=== PATIENT | female | born 1980 | race Caucasian/White ===

== ENCOUNTER 2017-10-23 11:12 | Emergency (ER) | payer OTHER ==
[2017-10-23 11:18] VITALS: BP 161/105; TEMP 96.9; BMI 28.8
--- NOTE | 2017-10-23 11:44 | ED.PDOC ---
General ED Provider: Dr. VALE TARANGO Chief Complaint: Headache Stated Complaint: CC: Headache. HPI: PATIENT STATES SHE HAD AND ONSET OF HER SYMPTOMS THIS MORNING. STATES THAT SHE HAS A HISTORY OF MIGRAINES. STATES SHE TOOK AN EXCEDRIN MIGRAINE, THEN STARTED VOMITED TEN MINUTES LATER. DENIES LOC. PATIENT REPORTS THAT SHE IS DIZZY Mode of Arrival: Walk-In Information Source: Patient Sepsis Protocol: For patient's 13 years and over: Temp is 96.8 and below OR 101 and greater Pulse >90 BPM Resp >20/minute Acutely Altered Mental Status Are patient's symptoms suggestive of a new infection, such as: -Pneumonia -Skin, Soft Tissue -Endocarditis -UTI -Bone, Joint Infection -Implantable Device -Acute Abdominal Infection -Wound Infection -Meningitis -Blood Stream Catheter Infection -Unknown Past Medical History - Past Medical History Last Menstrual Period: N/A - Social History Smoking Status: Never smoker Hx Substance Use: No Alcohol Screening: Occasionally - Immunizations Tetanus Shot up to Date: No Course - Course Hematology/Chemistry: 10/23/17 12:05 10/23/17 12:05 Orders, Labs, Meds: Lab Review 10/23/17 10/23/17 12:05 12:05 WBC 8.73 RBC 4.67 Hgb 13.6 Hct 39.1 MCV 83.7 MCH 29.1 MCHC 34.8 RDW Coeff of Osbaldo 12.3 Plt Count 161 Immature Gran % (Auto) 0.3 Neut % (Auto) 75.3 Lymph % (Auto) 20.2 [place] % (Auto) 3.2 Eos % (Auto) 0.5 Baso % (Auto) 0.5 Immature Gran # (Auto) 0.0 Neut # (Auto) 6.6 Lymph # (Auto) 1.8 [place] # (Auto) 0.3 L Eos # (Auto) 0.0 Baso # (Auto) 0.0 Sodium 141 Potassium 4.4 Chloride 104 Carbon Dioxide 22 Anion Gap 19.4 BUN 13 Creatinine 0.95 Estimated GFR (MDRD) 67.00 BUN/Creatinine Ratio 13.68 Glucose 97 Calcium 10.1 Total Bilirubin 0.8 AST 21 ALT 22 Alkaline Phosphatase 83 Total Protein 8.2 Albumin 4.2 Globulin 4.0 Albumin/Globulin Ratio 1.05 Orders Category Date Time Status IV [ED IV/MEDIPORT/POWERPORT] .ONCE EMERGENCY 10/23/17 13:21 Active CBC W/ AUTO DIFF Stat LAB 10/23/17 12:05 Completed CMP [COMPREHENSIVE METABOLIC PANEL] Stat LAB 10/23/17 12:05 Completed UA [URINALYSIS C & S IF INDICATED] Stat LAB 10/23/17 13:32 Uncollected URINE DRUG SCREEN (RAPID FOR ED) [DRUG SCREEN, URINE, LAB 10/23/17 13:32 Uncollected RAPID] Stat 0.9 % Sodium Chloride [Saline Flush] MEDS 10/23/17 13:21 Active 1 syr IVF PRN PRN Ketorolac Tromethamine [Toradol] MEDS 10/23/17 11:48 Discontinued 30 mg IM ONCE STA Ondansetron [Zofran Odt] MEDS 10/23/17 11:48 Discontinued 4 mg PO ONCE STA Promethazine HCl [Phenergan 25 mg/ml Vial] MEDS 10/23/17 13:42 Discontinued 25 mg .ROUTE .STK-MED ONE Promethazine HCl [Phenergan 25 mg/ml Vial] 25 mg MEDS 10/23/17 13:21 Discontinued 0.9 % Sodium Chloride [Sodium Chloride] 50 ml IV ONCE Sodium Chloride 0.9% [Sodium Chloride] 1,000 ml MEDS 10/23/17 13:[address] HEAD W/O CONTRAST Stat RADS 10/23/17 11:49 Completed Medications Generic Name Dose Route Start Last Admin Trade Name Freq PRN Reason Stop Dose Admin Sodium Chloride 1 syr 10/23/17 13:21 10/23/17 13:54 Saline Flush IVF 1 syr PRN PRN Administration To flush IV Discontinued Medications Generic Name Dose Route Start Last Admin Trade Name Freq PRN Reason Stop Dose Admin Promethazine HCl 25 mg/ Sodium 51 mls @ 75 mls/hr 10/23/17 13:21 10/23/17 13: 53 Chloride IV 10/23/17 14:01 75 mls/hr ONCE STA Administration Sodium Chloride 1,000 mls @ 500 mls/hr 10/23/17 13:21 10/23/17 13:54 Sodium Chloride IV 10/23/17 15:20 500 mls/hr BOLUS STA Administration Ketorolac Tromethamine 30 mg 10/23/17 11:48 10/23/17 11:56 Toradol IM 10/23/17 11:49 30 mg ONCE STA Administration Ondansetron HCl 4 mg 10/23/17 11:48 10/23/17 11:56 Zofran Odt PO 10/23/17 11:49 4 mg ONCE STA Administration Vital Signs: Temp Pulse Resp BP Pulse Ox 10/23/17 11:14 96.9 F L 91 H 18 161/105 H 98 Departure - Departure Time of Disposition: 15:50 Disposition: HOME SELF-CARE Discharge Problem: Cephalgia Instructions: General Headache (ED) Condition: Good Pt referred to PMD for follow-up: Yes (PRN) IPMP verified?: No Additional Instructions: STAY WELL HYDRATED TAKE PRESCRIBED MEDS NEEDED FOLLOW UP WITH PCP Allergies/Adverse Reactions: Allergies Latex, Natural Rubber Adverse Reaction (Verified 10/23/17 11:19) Home Medications: Ambulatory Orders 1 [No Reported Medications] 10/23/17 Disposition Discussed With: Patient (D/C IV)
[2017-10-23] MEDS ORDERED: ZOFRAN ODT PO STA (11:48)
[2017-10-23] MEDS ORDERED: TORADOL IM STA (11:48)
--- NOTE | 2017-10-23 12:32 | CT ---
EXAM: CT BRAIN HISTORY: Headache TECHNIQUE: CT brain without intravenous contrast. 5-mm axial sections with Reformations. COMPARISON: None FINDINGS: Brain is unremarkable without evidence of hemorrhage or large vessel distribution recent ischemic in farction. There is no suggestion of acute hydrocephalus or subdural fluid collection. No mass or ma ss effect. Cranium is within normal limits. Mastoid processes are aerated. The visualized paranasal sinuses a re clear. IMPRESSION: No acute intracranial process.
[2017-10-23] MEDS ORDERED: PHENERGAN 25 MG/ML VIAL 25 MG in SODIUM CHLORIDE 50 ML IV STA (13:21)
[2017-10-23] MEDS ORDERED: SODIUM CHLORIDE 1,000 ML IV STA (13:21)
[2017-10-23] MEDS ORDERED: PHENERGAN 25 MG/ML VIAL ONE (13:42)
== END 2017-10-23 16:49 | disposition home or self-care (01) ==
LOC: ED 11:12
DX: R51 Headache (principal)
CPT/HCPCS: 36415; 80053; 81001; 85025; 96361; 96365; 96372; 99283

== ENCOUNTER 2017-12-03 07:14 | Emergency (ER) ==
[2017-12-03 07:19] VITALS: BP 150/89; TEMP 97.6; BMI 29.0
--- NOTE | 2017-12-03 07:42 | ED.PDOC ---
General ED Provider: Dr. RAUL HORN Chief Complaint: Fever Stated Complaint: Left ear pain; funny feeling L face. Fever blister, left lower lip. Fever at home and loose stool. Time Seen by Physician: 07:30 Mode of Arrival: Walk-In Information Source: Patient Exam Limitations: No limitations Nursing and Triage Documentation Reviewed and Agree: Yes Does patient meet sepsis criteria?: No System Inflammatory Response Syndrome: Not Applicable Sepsis Protocol: For patient's 13 years and over: Temp is 96.8 and below OR 101 and greater Pulse >90 BPM Resp >20/minute Acutely Altered Mental Status Are patient's symptoms suggestive of a new infection, such as: -Pneumonia -Skin, Soft Tissue -Endocarditis -UTI -Bone, Joint Infection -Implantable Device -Acute Abdominal Infection -Wound Infection -Meningitis -Blood Stream Catheter Infection -Unknown EENT Complaint Exam - Ear Complaint/Exam Onset/Duration: Friday; pain L ear, numbness L face; fever blist; fever 103 and loose stool Symptoms Are: Still present Timing: Constant Initial Severity: Moderate Current Severity: Moderate Character: Reports: Dull pain. Denies: Dizzy, Room spinning, Sharp pain, Aching pain, Throbbing pain Aggravating: Reports: None Alleviating: Reports: None Associated Signs and Symptoms: Reports: Pain to external face (Left) Differential Diagnoses: Otitis Externa, Otitis Media, Other (Pt HX Migraines; had CT of head recently; viral syndrome considered with fever and loose stool+) Review of Systems - Review Of Systems Constitutional: Reports: Fever (Pt reports fever 103 at home), Malaise, Loss of appetite (some nausea) Ears, Nose, Mouth, Throat: Reports: Ear pain (Left ear) Respiratory: Reports: No symptoms Cardiac: Reports: No symptoms GI: Reports: Diarrhea (Loose stool since Friday), Nausea, Poor appetite Neurological: Reports: Numbness, Tingling (L face, L ear; no other neuro sx) All Other Systems: Reviewed and Negative Past Medical History - Past Medical History Previously Healthy: Yes Endocrine: Reports: None Cardiovascular: Reports: None Respiratory: Reports: None Hematological: Reports: None Gastrointestinal: Reports: None Genitourinary: Reports: None Neuro/Psych: Reports: Migraine Musculoskeletal: Reports: None, Other (Headache) Cancer: Reports: None Last Menstrual Period: none - Surgical History General Surgical History: Reports: Tonsillectomy - Family History Family History: Reports: None - Social History Smoking Status: Never smoker Hx Substance Use: No Alcohol Screening: Occasionally Physical Exam - Physical Exam Appearance: Well-appearing Eyes: NAT, EOMI, Conjunctiva clear, Right pupil size (6 mm), Left pupil size ( 6 mm) ENT: Ears normal, Oropharynx normal Neck: Supple Respiratory: Airway patent, Breath sounds clear, Breath sounds equal, Respirations nonlabored Cardiovascular: RRR Skin: Warm, Dry, Normal color Neurological: Sensation intact, Motor intact, Alert, Oriented Psychiatric: Affect appropriate, Mood appropriate Critical Care Note - Critical Care Note Total Time (mins): 12 Course - Course Vital Signs: Temp Pulse Resp BP Pulse Ox 12/03/17 07:16 97.6 F 78 20 150/89 H 97 Departure - Departure Time of Disposition: 07:50 Disposition: HOME SELF-CARE Discharge Problem: Viral syndrome Instructions: Viral Syndrome (ED) Condition: Good Pt referred to PMD for follow-up: Yes (Call for appointment) IPMP verified?: No (No indication for narcotic prescription) Additional Instructions: Take Prednisone as prescribed; use tylenol and/or ibuprofen for fever and discomfort. No work today or tomorrow; rest and increase fluids. Follow up with primary care if not better in the next few days. If worsening symptoms involving Left ear, Left face or neck return to ER. Prescriptions: Prednisone 20 mg PO DAILYWM #18 tablet Allergies/Adverse Reactions: Allergies Latex, Natural Rubber Adverse Reaction (Verified 12/03/17 07:19) Home Medications: Ambulatory Orders Prednisone 20 mg PO DAILYWM #18 tablet 12/03/17
== END 2017-12-03 08:09 | disposition home or self-care (01) ==
LOC: ED 07:14
DX: B34.9 Viral infection, unspecified (principal)
CPT/HCPCS: 99282

== ENCOUNTER 2018-05-08 08:30 | Outpatient (RCR) | END 2018-05-18 23:59 | PROVIDERS: ATTEND Family Medicine | DX: G56.03 Carpal tunnel syndrome, bilateral upper limbs (principal) ==

== ENCOUNTER 2018-07-01 16:10 | Outpatient (CLI) | END 2018-07-01 16:11 | disposition home or self-care (01) | LOC: RHC-LAB 16:10 → FCC-LAB 16:11 | PROVIDERS: ATTEND Nurse Practitioner Family | DX: R05 Cough (principal) | CPT/HCPCS: 87502 ==